=== PATIENT | male | born 1985 | race Caucasian/White ===

== ENCOUNTER 2017-06-07 19:32 | Emergency (ER) | payer MEDICAID ==
[~2017-06-07] VITALS: Ht 188 cm; Wt 100.0 kg
[2017-06-07] MEDS ORDERED: GUAIFENESIN 200MG/10ML SUGAR FREE UDC PO ONE (20:00)
[2017-06-07] MEDS ORDERED: AZITHROMYCIN 250 MG TABLET PO ONE (20:00)
[2017-06-07] MEDS ORDERED: IBUPROFEN 400MG TABLET PO ONE (20:00)
[2017-06-07] MEDS ORDERED: INSULIN REGULAR (HUMULIN R) 300UNITS/3ML SUBCUT ONE (20:45)
[2017-06-07 20:52] VITALS: BP 149/68
== END 2017-06-07 21:25 | disposition home or self-care (01) ==
LOC: ER 21:08
DX: B34.9 Viral infection, unspecified (principal); R10.32 Left lower quadrant pain; R19.7 Diarrhea, unspecified; E11.65 Type 2 diabetes mellitus with hyperglycemia; R11.2 Nausea with vomiting, unspecified
CPT/HCPCS: 82962; 96372; 99284; J1815

== ENCOUNTER 2021-02-20 00:03 | Emergency (ER) | payer MEDICAID ==
[~2021-02-20] VITALS: Ht 172.7 cm; Wt 64.0 kg
[2021-02-20] MEDS ORDERED: ACETAMINOPHEN 325MG TABLET PO STA (01:06)
[2021-02-20] MEDS ORDERED: KETOROLAC 30MG/ML VIAL IV STA (01:06)
[2021-02-20] MEDS ORDERED: ONDANSETRON HCL 4MG/2ML INJ IV ONE (01:15)
[2021-02-20] MEDS ORDERED: SODIUM CHLORIDE 0.9% 1,000 ML IV ONE (01:15)
[2021-02-20] MEDS ORDERED: DEXT 5%/0.9% NACL 1,000 ML IV ONE (01:15)
[2021-02-20 01:19] LABS: BASOPHILS % 0.2 % (0.0-2.0); HEMATOCRIT. 35.4 % (42.0-52.0); HEMOGLOBIN. 12.6 g/dL (14.0-18.0); LYMPHOCYTES % 20.2 % (20.0-50.0); MEAN CORPUSCULAR HEMOGLOBIN 29.6 pg (28.0-32.0); MEAN CORPUSCULAR VOLUME 82.9 fL (80.0-94.0); MEAN PLATELET VOLUME 8.5 fl (7.4-10.4); MONOCYTES % 8.3 % (2.0-8.0); NEUTROPHILS % 71.3 % (40.0-76.0); PLATELET 172 x1000/uL (130-400); RED BLOOD CELL COUNT 4.28 mill/uL (4.7-6.1); RED CELL DISTRIBUTION WIDTH 12.9 % (11.6-14.6)
[2021-02-20 01:25] LABS: CHLORIDE 98 mEq/L (98-107)
[2021-02-20] MEDS ORDERED: INSULIN REGULAR (HUMULIN R) 300UNITS/3ML VIAL SUBCUT ONE (03:00)
[2021-02-20] MEDS ORDERED: AZITHROMYCIN 500 MG TABLET PO ONE (05:15)
[2021-02-20 07:53] VITALS: BP 133/85
== END 2021-02-20 08:20 | disposition short-term general hospital (02) ==
LOC: ER 00:26
DX: U07.1 COVID-19 (principal); R55 Syncope and collapse; R53.1 Weakness; E11.65 Type 2 diabetes mellitus with hyperglycemia; Z79.4 Long term (current) use of insulin
CPT/HCPCS: 36415; 71045; 80053; 82010; 82962; 83690; 85025; 87426; 93005; 96361; 96372; 96374; 96375; 99285; J1815; J1885; J2405; J7030; J7042

== ENCOUNTER 2024-12-18 12:15 | Emergency (ER) | payer MEDICARE, MEDICAID ==
[~2024-12-18] VITALS: Ht 177.8 cm; Wt 91.0 kg
[~2024-12-18 12:15] MED LIST: BLOO-1812 MC; INSU100I68 SUBCUT; PEPJ2 PO; [UNRECOGNIZED DRUG - CODE] PO
[2024-12-18 12:18] VITALS: O2SAT 99
[2024-12-18 13:11] LABS: BASOPHILS % 0.3 % (0.0-2.0); EOSINOPHILS % 1.1 % (0.0-5.0); HEMATOCRIT. 31.7 % (42.0-52.0); LYMPHOCYTES % 14.4 % (20.0-50.0); MEAN CORPUSCULAR HEMOGLOBIN 29.3 pg (28.0-32.0); MEAN CORPUSCULAR HGB CONC 34.7 g/dL (31.0-37.0); MEAN CORPUSCULAR VOLUME 84.4 fL (80.0-94.0); MONOCYTES % 5.9 % (2.0-8.0); NEUTROPHILS % 78.3 % (40.0-76.0); PLATELET 260 x1000/uL (130-400); RED BLOOD CELL COUNT 3.76 mill/uL (4.7-6.1); RED CELL DISTRIBUTION WIDTH 13.7 % (11.6-14.6); WHITE BLOOD COUNT 9.6 x1000/uL (4.5-11.0)
[2024-12-18 13:24] LABS: CARBON DIOXIDE 26 mEq/L (21-32); CHLORIDE 106 mEq/L (98-107); POTASSIUM 3.6 mEq/L (3.5-5.1); SODIUM 139 mEq/L (136-145)
[2024-12-18 13:25] LABS: CALCIUM 7.8 mg/dL (8.7-10.4)
[2024-12-18 13:30] LABS: ETHANOL BLOOD < 10 mg/dL (<10); UREA NITROGEN BLOOD 23 mg/dL (9-23)
[2024-12-18 13:31] LABS: ALANINE AMINOTRANSFERASE 7 IU/L (10-49); ALBUMIN 2.8 g/dL (3.2-4.8); ASPARTATE AMINOTRANSFERASE 11 IU/L (<34)
[2024-12-18] MEDS: SODIUM CHLORIDE 0.9% 1,000 ML IV ONE ×2 (13:31→14:36)
[2024-12-18 13:32] LABS: BILIRUBIN DIRECT < 0.1 mg/dL (<=3.0); BILIRUBIN TOTAL 0.4 mg/dL (0.1-1.0); PHOSPHORUS 2.3 mg/dL (2.5-4.9)
[2024-12-18 13:52] LABS: INR 0.9; PROTHROMBIN TIME 10.1 sec (9.6-11.0)
[2024-12-18 13:54] LABS: CREATININE 1.8 mg/dL (0.6-1.3)
[2024-12-18 13:58] LABS: GLUCOSE 415 mg/dL (70-105)
[2024-12-18] MEDS: MAGNESIUM 2 G PREMIX 50 ML IV ONE (14:36)
[2024-12-18] MEDS: KETOROLAC 30MG/ML VIAL IV ONE (14:36)
[2024-12-18] MEDS ORDERED: INSULIN LISPRO 100 UNITS/ML SUBCUT STA (14:52)
[2024-12-18] MEDS ORDERED: DEXTROSE 50% WATER 50ML SYRINGE IV PRN (15:00)
[2024-12-18] MEDS: INSULIN LISPRO 100 UNITS/ML SUBCUT SCH (17:44)
[2024-12-18] MEDS: BLOOD SUGAR DIAGNOSTIC STRIP TEST SCH (17:52)
[2024-12-18 19:03] VITALS: BP 115/67; PULSE 65; RESP 14; TEMP 36.9; O2SAT 99
== END 2024-12-18 19:15 | disposition home or self-care (01) ==
LOC: ER 12:15
DX: E11.65 Type 2 diabetes mellitus with hyperglycemia (principal); E83.42 Hypomagnesemia; G44.209 Tension-type headache, unspecified, not intractable; N17.9 Acute kidney failure, unspecified; I10 Essential (primary) hypertension; F10.90 Alcohol use, unspecified, uncomplicated; Z79.4 Long term (current) use of insulin; Z79.84 Long term (current) use of oral hypoglycemic drugs; Y90.9 Presence of alcohol in blood, level not specified
CPT/HCPCS: 80076; 80048; 80320; 82962; 83690; 83735; 84100; 85025; 85610; 36415; 71045; 70450; 96361; 96365; 96375; 99285; J1815; J1885; J3475; J7030; G0480